=== PATIENT | female | born 1960 | race Caucasian/White ===

== ENCOUNTER 2018-02-20 07:48 | Day surgery (SDC) | payer BC ==
[2018-02-15 12:47] VITALS: BMI 28.7
[~2018-02-20 07:48] MED LIST: LACTATED RINGERS 1,000 ML IV SCH; LIDOCAINE 1% 20 ML VIAL (10MG/ML) FOR IV START INTRADERMA PRN
[2018-02-20 08:12] VITALS: RESP 16; TEMP 98.4
--- NOTE | 2018-02-20 08:34 | P.GSHP ---
History of Present Illness H&P Date: 02/20/18 Chief Complaint: Screening colonoscopy This a 57-year-old female who presents today for screening colonoscopy. Patient denies any significant GI complaints. Past Medical History Past Medical History: Hyperlipidemia History of Any Multi-Drug Resistant Organisms: None Reported Additional Past Surgical History / Comment(s): partial thyroidectomy. COLONOSCOPY Past Anesthesia/Blood Transfusion Reactions: No Reported Reaction Smoking Status: Never smoker - Past Family History Father Family Medical History: Cancer Medications and Allergies Home Medications Medication Instructions Recorded Confirmed Type Aspirin EC [Ecotrin Low Dose] 81 mg PO DAILY 02/15/18 02/20/18 History Atorvastatin [Lipitor] 20 mg PO MOTUWETHFR 02/15/18 02/20/18 History Allergies Allergy/AdvReac Type Severity Reaction Status Date / Time No Known Allergies Allergy Verified 02/20/18 07:57 Surgical - Exam Vital Signs Temp Pulse Resp BP Pulse Ox 98.4 F 83 16 128/66 97 02/20/18 08:04 02/20/18 08:04 02/20/18 08:04 02/20/18 08:04 02/20/18 08:04 - General well developed, no distress - Eyes PERRL - ENT normal pinna - Neck no masses - Respiratory normal expansion - Cardiovascular Rhythm: regular - Abdomen Abdomen: soft, non tender Assessment and Plan Plan: We'll perform screening colonoscopy.
[2018-02-20] MEDS ORDERED: fentaNYL (PF) 50 MCG/ML 2 ML AMP ONE (08:35)
[2018-02-20] MEDS ORDERED: PROPOFOL 10 MG/ML 20 ML VIAL IV ONE (08:35)
[2018-02-20] MEDS ORDERED: MIDAZOLAM 2 MG/2 ML VIAL ONE (08:35)
--- NOTE | 2018-02-20 08:49 | P.OP ---
Date of Procedure: 02/20/18 Preoperative Diagnosis: Screening colonoscopy Postoperative Diagnosis: Diverticulosis Procedure(s) Performed: Colonoscopy Anesthesia: MAC Surgeon: Gurpreet Sidhu Pathology: none sent Condition: stable Disposition: PACU Description of Procedure: The patient's placed on the endoscopy table in the lateral position. She received IV sedation. Digital rectal exam is performed which revealed no abnormalities. The flexible colonoscope was then placed patient anus and passed throughout the entire colon. The ileocecal valve was visualized. The cecum, ascending and transverse colon appeared normal. In the descending sigmoid colon there was moderate diverticular changes. There is no evidence of diverticulitis. The scope was then brought back into the rectum and this appeared normal. Scope was withdrawn for patient.
[2018-02-20 09:34] VITALS: BP 129/70; PULSE 60
== END 2018-02-20 09:40 | disposition home or self-care (01) ==
LOC: ORWHC2ENDO 07:48
PROVIDERS: ATTEND Surgery
DX: Z12.11 Encounter for screening for malignant neoplasm of colon (principal); K57.30 Diverticulosis of large intestine without perforation or abscess without bleeding; E78.5 Hyperlipidemia, unspecified; Z79.82 Long term (current) use of aspirin; Z79.899 Other long term (current) drug therapy
CPT/HCPCS: J2250; J3010; J2704; G0121

== ENCOUNTER 2023-04-21 07:27 | Day surgery (SDC) | payer BC ==
[2023-04-19 13:51] VITALS: BMI 30.2
[2023-04-21] MEDS ORDERED: LACTATED RINGERS 1,000 ML IV SCH (07:35)
[2023-04-21] MEDS: LACTATED RINGERS 1,000 ML IV ONE (07:36)
[2023-04-21 07:52] VITALS: RESP 16; TEMP 97.9
[2023-04-21] MEDS ORDERED: PROPOFOL 10 MG/ML 20 ML VIAL IV ONE (08:20)
--- NOTE | 2023-04-21 08:23 | P.GSHP ---
History of Present Illness H&P Date: 04/21/23 Chief Complaint: Family history: Cancer, screening colonoscopy This a 62-year-old female who has a family history of colon cancer. Patient presents today for screening colonoscopy. Past Medical History Past Medical History: Hyperlipidemia History of Any Multi-Drug Resistant Organisms: None Reported Additional Past Surgical History / Comment(s): partial thyroidectomy. COLONOSCOPY Past Anesthesia/Blood Transfusion Reactions: No Reported Reaction, Motion Sickness Smoking Status: Never smoker - Past Family History Father Family Medical History: Cancer Additional Family Medical History / Comment(s): colon and pancreatic cancer Medications and Allergies Home Medications Medication Instructions Recorded Confirmed Type Aspirin EC [Ecotrin Low Dose] 162 mg PO DAILY 02/15/18 04/19/23 History Atorvastatin [Lipitor] 20 mg PO MOTUWETHFR 02/15/18 04/21/23 History Ascorbic Acid [Vitamin C] 500 mg PO BID 04/19/23 04/19/23 History Calcium/Mag/Zinc -Dose Unknown 1 dose PO BID 04/19/23 04/19/23 History Calcium/Vitamin D-Dose Unknown 1 dose PO HS 04/19/23 04/19/23 History Catalyn (Dose Unknown) 1 dose PO QAM 04/19/23 04/19/23 History Cholecalciferol (Vitamin D3) 4,000 unit PO HS 04/19/23 04/19/23 History [Vitamin D3 (50 Mcg = 2000 Iu) Chew Tab] [place] 3 (Dose Unknown) 1 dose PO QAM 04/19/23 04/19/23 History Prasterone (Dhea) [Dhea 25] 25 mg PO QAM 04/19/23 04/19/23 History Simply Sleep (Dose Unknown) 1 dose PO QAM 04/19/23 04/21/23 History Super B Complex-Dose Unknown 1 dose PO QAM 04/19/23 04/19/23 History Turmeric (Dose Unknown) 1 dose PO QAM 04/19/23 04/19/23 History Ubidecarenone [Co Q-10] 50 mg PO QAM 04/19/23 04/19/23 History Allergies Allergy/AdvReac Type Severity Reaction Status Date / Time No Known Allergies Allergy Verified 04/21/23 07:44 Surgical - Exam Vital Signs Temp Pulse Resp BP Pulse Ox 97.9 F 64 16 138/63 98 04/21/23 07:45 04/21/23 07:45 04/21/23 07:45 04/21/23 07:45 04/21/23 07:45 - General well developed, well nourished, no distress - Eyes PERRL - ENT normal pinna - Neck no masses - Respiratory normal expansion - Cardiovascular Rhythm: regular - Abdomen Abdomen: soft, non tender Assessment and Plan Assessment: Family history: Cancer. We'll perform screening colonoscopy.
--- NOTE | 2023-04-21 08:43 | P.OP ---
Date of Procedure: 04/21/23 Preoperative Diagnosis: Family history: Cancer Screening colonoscopy Postoperative Diagnosis: Diverticulosis Procedure(s) Performed: Colonoscopy Anesthesia: MAC Surgeon: Gurpreet Sidhu Pathology: none sent Condition: stable Disposition: PACU Description of Procedure: The patient's placed on the endoscopy table in the lateral position. She received IV sedation. Digital rectal exam was performed. This revealed no abnormalities. Flexible colonoscope was then placed patient anus passed throughout the entire colon. The ileocecal valve was visualized. The cecum, ascending and transverse colon appeared normal. The descending and sigmoid colon extensive diverticular changes. Scope summer back the rectum and this appeared normal. Scope withdrawn for patient.
[2023-04-21 09:04] VITALS: BP 128/65; PULSE 69
== END 2023-04-21 10:53 | disposition home or self-care (01) ==
LOC: ORWHC2ENDO 07:27
PROVIDERS: ATTEND Surgery
DX: Z12.11 Encounter for screening for malignant neoplasm of colon (principal); K57.30 Diverticulosis of large intestine without perforation or abscess without bleeding; E78.5 Hyperlipidemia, unspecified; Z90.89 Acquired absence of other organs; Z80.42 Family history of malignant neoplasm of prostate; Z79.82 Long term (current) use of aspirin; Z79.899 Other long term (current) drug therapy; Z80.0 Family history of malignant neoplasm of digestive organs
CPT/HCPCS: 45378; J2704